=== PATIENT | female | born 1950 | race Caucasian/White ===

== ENCOUNTER → 2017-06-23 | Outpatient (CLI) | payer MEDICARE, OTHER ==
--- NOTE | 2017-06-23 10:02 | RADRPT ---
EXAM DATE/TIME: 06/23/2017 09:50 [place] COMPARISON: No previous studies available for comparison. INDICATIONS : Cough for 1 day. MEDICAL HISTORY : Hypertension. Diabetes mellitus type II. Smoker. SURGICAL HISTORY : None. ENCOUNTER: Initial ACUITY: 1 day PAIN SCORE: 0/10 LOCATION: Bilateral chest FINDINGS: PA and lateral views of the chest demonstrate the lungs to be symmetrically aerated without evidence of mass, infiltrate or effusion. The cardiomediastinal contours are unremarkable. Osseous structure s are intact. CONCLUSION: No acute disease. Cristiano Jones MD on June 23, 2017 at 10:00 Board Certified Radiologist. This report was verified electronically.
== END ==
LOC: HRAD 09:30
PROVIDERS: ATTEND Family Medicine
DX: J41.0 Simple chronic bronchitis (principal); F17.210 Nicotine dependence, cigarettes, uncomplicated
CPT/HCPCS: 71046

== ENCOUNTER → 2017-08-29 | Outpatient (CLI) | payer MEDICARE, OTHER ==
--- NOTE | 2017-08-29 14:02 | RADRPT ---
EXAM DATE: 08/29/2017 1:40 PM EDT AGE/SEX: 66 years / Female INDICATIONS: Low back pain. CLINICAL DATA: This is the patient's initial encounter. Patient reports that signs and symptoms have been present for 2 days and indicates a pain score of 8/10. MEDICAL/SURGICAL HISTORY: None. None. COMPARISON: No prior exams available for comparison. FINDINGS: The vertebral bodies are in normal alignment without evidence of compression deformity. Minimal loss of disc space height at L5-S1 Bone density is normal for age. Soft tissues are grossly intact. Degen erative changes are seen about both SI joints. CONCLUSION: Minimal loss of disc space height L5-S1. SI joint degenerative change. Electronically signed by: Paul Carlos MD 08/29/2017 2:01 PM EDT
== END ==
LOC: HRAD 13:11
PROVIDERS: ATTEND Family Medicine
DX: M54.5 Low back pain (principal)
CPT/HCPCS: 72110

== ENCOUNTER 2017-09-01 12:00 | Inpatient (IN) ==
[2017-09-04] MEDS ORDERED: hydrALAZINE 10 MG Tablet PO PRN (00:01)
[2017-09-04] MEDS ORDERED: Dextrose 50% in Water 50 ML Vial IV.PUSH PRN (00:01)
[2017-09-04] MEDS: Heparin - SQ 10,000 UNITS/ML Vial SQ SCH ×3 (06:09→22:15)
[2017-09-04] MEDS ORDERED: Insulin NovoLOG Aspart Correctional Sugar Inj SQ SCH ×3 (08:00→10:00)
[2017-09-04] MEDS: Aspirin 325 MG Tablet PO SCH (09:51)
[2017-09-04] MEDS: Atenolol 50 MG Tablet PO SCH ×2 (09:51→22:12)
[2017-09-04] MEDS: Loratadine 10 MG Tablet PO SCH (14:07)
[2017-09-04] MEDS ORDERED: MethylPREDNISolone Sod Succinate Inj 125 MG/2 ML Vial IV.PUSH ONE (16:04)
[2017-09-04] MEDS: Insulin NovoLOG Aspart Correctional Sugar Inj SQ SCH (22:11)
[2017-09-04] MEDS: ALPRAZolam 0.25 MG Tablet PO PRN (23:51)
--- NOTE | 2017-09-05 09:06 | P.PNNEU ---
Subjective Subjective Comments: No acute events reported No headache No chest pain No dyspnea Active Medications: Active Medications Generic Name Dose Route Start Last Admin Trade Name Freq PRN Reason Stop Dose Admin Alprazolam 0.25 mg 09/04/17 00:01 09/04/17 23:51 Xanax PO 0.25 mg Q8H PRN Administration ANXIETY Aspirin 325 mg 09/04/17 09:00 09/04/17 09:51 Aspirin PO 325 mg DAILY MARILU Administration Atenolol 50 mg 09/04/17 09:00 09/04/17 22:12 Tenormin PO 50 mg BID MARILU Administration Atorvastatin Calcium 40 mg 09/04/17 21:00 09/04/17 22:12 Lipitor PO 40 mg HS MARILU Administration Dextrose 50 ml 09/04/17 00:01 D50w Vial IV.PUSH UNSCH PRN PER HYPOGLYCEMIA PROTOCOL Glucagon 1 mg 09/04/17 00:01 Glucagon Inj OTHER PRN PRN for Hypoglycemia Protocol Heparin Sodium (Porcine) 5,000 units 09/04/17 06:00 09/04/17 22:15 Heparin Inj SQ Not Given Q8HR [facility] Hydralazine HCl 10 mg 09/04/17 00:01 Apresoline PO Q6H PRN SBP>160, DBP>90 Insulin Aspart 0 - 12 unit 09/04/17 22:00 09/04/17 22:11 Novolog Insulin Suppl Scale Inj SQ 10 unit ACHS MARILU Administration Protocol Loratadine 10 mg 09/04/17 09:00 09/04/17 14:07 Claritin PO Not Given DAILY [facility] Sodium Chloride 2 ml 09/04/17 00:01 Ns Flush IV.FLUSH UNSCH PRN FLUSH AFTER USING IV ACCESS Trimethoprim/Sulfamethoxazole 1 tab 09/04/17 09:00 09/04/17 22:13 Bactrim Ds PO 1 tab Q12HR MARILU Administration Allergies/Adverse Reactions: Allergies Allergy/AdvReac Type Severity Reaction Status Date / Time codeine Allergy Unknown Verified 09/01/17 12:23 Penicillins Allergy Unknown Verified 09/01/17 12:23 Physical Exam Vital signs: Vital Signs 09/04/17 12:00 09/04/17 16:00 09/04/17 19:51 Temperature 97.1 F L 97.3 F L Pulse Rate 74 73 84 Respiratory Rate 18 18 Blood Pressure 165/86 H 174/81 H Pulse Oximetry 99 99 09/04/17 20:00 09/04/17 23:51 09/05/17 00:00 Temperature 97.8 F 97.4 F L Pulse Rate 80 77 73 Respiratory Rate 18 18 Blood Pressure 149/76 H 159/83 H Pulse Oximetry 95 95 09/05/17 04:00 09/05/17 06:01 Temperature 97.7 F Pulse Rate 68 Respiratory Rate 17 17 Blood Pressure 134/75 Pulse Oximetry 93 L Intake & Output 09/04/17 09/05/17 09/05/17 18:59 06:59 18:59 Intake Total 1780 / 1780 Output Total 300 / 300 Balance 1480 / 1480 Weight 55.1 kg Intake: Oral [id number] Output: Urine 300 / 300 Other: # Voids 5 3 Date of Last Bowel Movement 09/02/17 09/02/17 - Routine Neurological Exam Present: alert, oriented X3, CN II-XII intact, motor deficit (rt leg 1-2/5) Objective Laboratory Results - last 24 hr 09/04/17 09/04/17 09/04/17 17:13 21:24 21:25 POC Glucose 108 423 H 388 H 09/05/17 09/05/17 03:54 07:35 POC Glucose 241 H 161 H Review/Management - Diagnosis (1) Stroke Code(s): I63.9 - Cerebral infarction, unspecified Status: Acute Current Visit: Yes (2) Stroke due to embolism of left middle cerebral artery Code(s): I63.412 - Cerebral infarction due to embolism of left middle cerebral artery Status: Acute Current Visit: Yes - Review/Management Plan: suspect stroke and not MS antiplatelet tob cessation bp control ldl<70 f/u in 2-3 weeks repeat mri brain in 6-8 weeks
[2017-09-05] MEDS: Aspirin 325 MG Tablet PO SCH (09:24)
[2017-09-05] MEDS: Insulin NovoLOG Aspart Correctional Sugar Inj SQ SCH ×3 (09:24→18:01)
[2017-09-05] MEDS: Atenolol 50 MG Tablet PO SCH ×2 (09:25→21:49)
[2017-09-05] MEDS: Loratadine 10 MG Tablet PO SCH (09:25)
--- NOTE | 2017-09-05 13:04 | P.PNIM ---
Subjective Interval history: 66 yo wf with RLE weakness for 4 days. Also c/o RUE numbness and paresthesia. Seen by neurology, JAYSON and loop placement requested. Pt supposed to be NPO, but did not comply. 09-03 Patient still has right lower extremity weakness with difficulty extending up to the flexion and extension of her right knee. She has a history of sciatica. 7 Patient states she has regained some strength in her right leg and rather than pure numbness has incision of her right foot. She is able to minimally move her ankle in a flexion-extension direction. She is ambulating with the assistance of a walker 7-2 TO GO FOR MRI TODAY AND JAYSON AND LOOP RECORDER TOMORROW DW RN AND PT AND CM AM LABS Physical Exam Vital signs: Vital Signs 09/04/17 16:00 09/04/17 19:51 09/04/17 20:00 Temperature 97.3 F L 97.8 F Pulse Rate 73 84 80 Respiratory Rate 18 18 Blood Pressure 174/81 H 149/76 H Pulse Oximetry 99 95 09/04/17 23:51 09/05/17 00:00 09/05/17 04:00 Temperature 97.4 F L 97.7 F Pulse Rate 77 73 68 Respiratory Rate 18 17 Blood Pressure 159/83 H 134/75 Pulse Oximetry 95 93 L 09/05/17 06:01 09/05/17 08:00 Temperature 97.3 F L Pulse Rate 71 Respiratory Rate 17 18 Blood Pressure 174/79 H Pulse Oximetry 98 Intake & Output 09/04/17 09/05/17 09/05/17 18:59 06:59 18:59 Intake Total 1780 / 1780 Output Total 300 / 300 Balance 1480 / 1480 Weight 55.1 kg Intake: Oral 1779 / 1780 Output: Urine 300 / 300 Other: # Voids 5 3 Date of Last Bowel Movement 09/02/17 09/02/17 Narrative: GENERAL: Awake alert and oriented 3 talkative and cooperative has right lower extremity weakness SKIN: Warm and dry. HEAD: Atraumatic. Normocephalic. EYES: Pupils equal and round. No scleral icterus. No injection or drainage. Extraocular muscles intact ENT: No nasal bleeding or discharge. Mucous membranes pink and moist. Tongue is midline NECK: Trachea midline. No JVD. Supple CARDIOVASCULAR: Regular rate and rhythm. S1-S2 no S3 or S4 no heave or thrill or rub or gallop RESPIRATORY: No accessory muscle use. Clear to auscultation. Breath sounds equal bilaterally. GASTROINTESTINAL: Abdomen soft, non-tender, nondistended. Hepatic and splenic margins not palpable. MUSCULOSKELETAL: Extremities without clubbing, cyanosis, or edema. No obvious deformities. NEUROLOGICAL: Awake and alert. No obvious cranial nerve deficits. Motor grossly within normal limits. Five out of 5 muscle strength in the arms and legs. Normal speech. Right lower extremity weakness 3/5 PSYCHIATRIC: Appropriate mood and affect; insight and judgment normal. Results - Labs CBC & Chem 7: 09/03/17 06:34 09/01/17 12:30 Laboratory Results - last 24 hr 09/04/17 09/04/17 09/04/17 17:13 21:24 21:25 POC Glucose 108 423 H 388 H 09/05/17 09/05/17 09/05/17 03:54 07:35 12:11 POC Glucose 241 H 161 H 123 H Assessment and Plan - Plan 66-year-old white female being admitted for strokelike symptoms and right leg paresis Right leg paresis Onset following to 3 hour car rides to [place] and 2 hours spent in hot tub after full day on feet at [facility] She has had similar episodes in the past affecting the same leg but not this severe Single dose of Solu-Medrol has resulted in return of paresthesias rather than numbness in her right foot, ankle is moving again with 2 out of 5 strength in upper leg is able to support ambulation with walker give another dose of Solu-Medrol 125 mg IV MRI of C-spine ordered given history of disc herniations and neck Ongoing workup for MS is still pending Appreciate neurology consultation Left MCA ischemia Head MRA reviewed and reveals unremarkable MRA examination of the brain. Specifically, no significant intracranial arterial stenosis or large vessel occlusion. Head MRI reveals white matter lesions consistent with left-sided CVA versus demyelination disorder Neurology has consulted cardiology and requested JAYSON, scheduled for tomorrow Continue aspirin daily, continue home Lipitor Appreciate neurology consult Appreciate cardiology consult Abnormal lumbar MRI Lumbar MRI reveals right-sided facet joint synovial cyst at the L4-5 level protruding into the canal in contributing to moderate canal compromise Neurosurgery suspects left CVA, less likely compression of spinal stenosis Appreciate neurosurgery consult FOR MRI TODAY Urinary tract infection UA ordered due to intermittent elevation of leukocytes, positive for UTI Urine culture pending Continue Bactrim DVT prophylaxis Heparin Code Status: Full code Discussed Condition With: RN and patient and case management Discharge Planning: Pending clearance by cardiology and neurology and neurosurgery
[2017-09-05] MEDS: Heparin - SQ 10,000 UNITS/ML Vial SQ SCH (13:20)
--- NOTE | 2017-09-05 14:46 | MR ---
EXAM DATE: 09/05/2017 2:38 PM EDT AGE/SEX: 67 years / Female INDICATIONS: . Right upper and lower extremity weakness. CLINICAL DATA: This is the patient's subsequent encounter. Patient reports that signs and symptoms h ave been present for 4 - 6 days and indicates a pain score of 0/10. MEDICAL/SURGICAL HISTORY: Hypertension. Diabetes mellitus type II. Hysterectomy. left lumpecto my COMPARISON: No prior exams available for comparison. TECHNIQUE: Multiplanar, multisequence MRI examination of the cervical spine was performed without co ntrast. FINDINGS: Vertebrae: Normal vertebral body height. Homogeneous marrow signal. There are mild degenerative karie nges with disc dehydration and disc space narrowing at C4-5, C5-6 and C6-7. No abnormal bone marrow e aster is demonstrated. No compression fracture injuries are demonstrated. Alignment: Normal. Cord: Normal configuration and signal. Post Fossa: The cerebellar tonsils are normal in position. C2-C3: The thecal sac has a normal configuration. There is no evidence of disc herniation or spinal canal stenosis. The neural foramina are patent bilaterally. C3-C4: The thecal sac has a normal configuration. There is no evidence of disc herniation or spinal canal stenosis. The neural foramina are patent bilaterally. C4-C5: There is broad-based bulging and right paracentral bulging with some narrowing of the neural foramina bilaterally, right greater than left. C5-C6: Diffuse broad-based bulging with some narrowing of the neural foramina bilaterally. C6-C7: Mild diffuse broad-based bulging. The neural foramina appear patent. C7-T1: No epidural impressions seen. CONCLUSION: 1. There is broad-based bulging and right paracentral bulging at C4-5. 2. There is diffuse broad-based bulging at C5-6 and C6-7 3. Primary bony degenerative changes, disc degeneration and disc space narrowing at C4-5, C5-6 and C 6-7 Electronically signed by: Rasheed Qiu MD 09/05/2017 2:45 PM EDT
--- NOTE | 2017-09-05 15:09 | P.PNCA ---
Subjective Interval history: No CP or SOB, weakness improving Physical Exam Vital signs: Vital Signs 09/04/17 16:00 09/04/17 19:51 09/04/17 20:00 Temperature 97.3 F L 97.8 F Pulse Rate 73 84 80 Respiratory Rate 18 18 Blood Pressure 174/81 H 149/76 H Pulse Oximetry 99 95 09/04/17 23:51 09/05/17 00:00 09/05/17 04:00 Temperature 97.4 F L 97.7 F Pulse Rate 77 73 68 Respiratory Rate 18 17 Blood Pressure 159/83 H 134/75 Pulse Oximetry 95 93 L 09/05/17 06:01 09/05/17 08:00 Temperature 97.3 F L Pulse Rate 71 Respiratory Rate 17 18 Blood Pressure 174/79 H Pulse Oximetry 98 Intake & Output 09/04/17 09/05/17 09/05/17 18:59 06:59 18:59 Intake Total 1780 / 1780 Output Total 300 / 300 Balance 1480 / 1480 Weight 121 lb 7.595 oz Intake: Oral 1780 / 1780 Output: Urine 300 / 300 Other: # Voids 5 3 Date of Last Bowel Movement 09/02/17 09/02/17 - Constitutional no acute distress - Routine Respiratory Exam Present: CTA bilaterally - Routine Cardiovascular Exam Present: RRR. Absent: murmur, gallop - Routine Abdominal Exam Present: soft - Routine Extremities Exam Absent: edema - Routine Neurological Exam Present: alert, oriented X3 - Routine Psychiatric Exam Present: normal affect Assessment and Plan - Assessment (1) Stroke Code(s): I63.9 - Cerebral infarction, unspecified Status: Acute (2) HTN (hypertension) Code(s): I10 - Essential (primary) hypertension Status: Acute (3) Smoking Code(s): F17.200 - Nicotine dependence, unspecified, uncomplicated Status: Acute - Plan Weakness improving. Tele with no evidence of a fib. Continue monitoring. Proceed with JAYSON tomorrow.
[2017-09-06] MEDS: Heparin - SQ 10,000 UNITS/ML Vial SQ SCH ×4 (06:43→23:00)
[2017-09-06 08:13] LABS: Prothrombin Time 10.3 sec (9.8-11.6)
[2017-09-06 08:15] LABS: Baso # (Auto) 0.1 th/mm3 (0.0-0.2); Baso % (Auto) 0.7 % (0.0-2.0); Eos % (Auto) 0.4 % (0.0-4.0); Hemoglobin 16.3 gm/dL (11.6-15.3); Lymph # (Auto) 0.8 th/mm3 (1.0-4.8); Mean Corpuscular HGB Conc 33.3 % (32.0-36.0); Mean Corpuscular Hemoglobin 31.9 pg (27.0-34.0); Mean Corpuscular Volume 95.8 fL (80.0-100.0); Mean Platelet Volume 10.6 fL (7.0-11.0); Mono % (Auto) 10.6 % (0.0-8.0); Neut # (Auto) 7.9 th/mm3 (1.8-7.7); Neut % (Auto) 80.3 % (16.0-70.0); Platelet Count 125 th/mm3 (150-450); Red Blood Count 5.11 mil/mm3 (4.00-5.30); Red Cell Distribution Width 13.7 % (11.6-17.2); White Blood Count 9.8 th/mm3 (4.0-11.0)
[2017-09-06 08:25] LABS: Albumin 3.4 g/dL (3.4-5.0); Anion Gap 9 meq/L (5-15); Aspartate Aminotransferase 27 U/L (15-37); Blood Urea Nitrogen 21 mg/dL (7-18); Calcium 8.7 mg/dL (8.5-10.1); Carbon Dioxide 25.6 meq/L (21.0-32.0); Chloride 103 meq/L (98-107); Glomerular Filtration Rate 58 mL/min (>89); Glucose,Random 149 mg/dL (74-106); Magnesium 1.9 mg/dL (1.5-2.5); Potassium 3.9 meq/L (3.5-5.1); Sodium 138 meq/L (136-145)
[2017-09-06 08:35] LABS: Alanine Aminotransferase 37 U/L (10-53); Alkaline Phosphatase 69 U/L (45-117); Free T4 (Free Thyroxine) 1.13 ng/dL (0.76-1.46); Phosphorus 2.7 mg/dL (2.5-4.9); Total Protein 7.1 g/dL (6.4-8.2)
[2017-09-06] MEDS: Aspirin 325 MG Tablet PO SCH (10:07)
[2017-09-06] MEDS: Loratadine 10 MG Tablet PO SCH (10:08)
[2017-09-06] MEDS: Atenolol 50 MG Tablet PO SCH ×2 (10:08→20:59)
[2017-09-06] MEDS: Insulin NovoLOG Aspart Correctional Sugar Inj SQ SCH ×4 (10:13→20:58)
[2017-09-06] MEDS: ALPRAZolam 0.25 MG Tablet PO PRN (11:59)
--- NOTE | 2017-09-06 12:55 | P.PNIM ---
Subjective Interval history: 66 yo wf with RLE weakness for 4 days. Also c/o RUE numbness and paresthesia. Seen by neurology, JAYSON and loop placement requested. Pt supposed to be NPO, but did not comply. 09-03 Patient still has right lower extremity weakness with difficulty extending up to the flexion and extension of her right knee. She has a history of sciatica. 7- Patient states she has regained some strength in her right leg and rather than pure numbness has incision of her right foot. She is able to minimally move her ankle in a flexion-extension direction. She is ambulating with the assistance of a walker 7-2 TO GO FOR MRI TODAY AND JAYSON AND LOOP RECORDER TOMORROW DW RN AND PT AND CM AM LABS 7-3 TO GO FOR JAYSON AND LOOP RECORDER TODAY WITH CARDIOLOGY ANTIONE RN AND PT AND CM AM LABS Physical Exam Vital signs: Vital Signs 09/05/17 16:00 09/05/17 20:00 09/06/17 00:00 Temperature 97.9 F 98.1 F 98.8 F Pulse Rate 72 75 78 Respiratory Rate 20 16 16 Blood Pressure 169/74 H 150/77 H 162/71 H Pulse Oximetry 99 95 96 09/06/17 03:48 09/06/17 04:00 Temperature 99.7 F H 98.2 F Pulse Rate 85 78 Respiratory Rate 16 18 Blood Pressure 159/81 H 100/70 Pulse Oximetry 94 L 98 Intake & Output 09/05/17 09/06/17 09/06/17 18:59 06:59 18:59 Intake Total 480 / 480 Balance 480 / 480 Intake: Oral 480 / 480 Other: # Voids 3 Date of Last Bowel Movement 09/04/17 Narrative: GENERAL: Awake alert and oriented 3 talkative and cooperative has right lower extremity weakness SKIN: Warm and dry. HEAD: Atraumatic. Normocephalic. EYES: Pupils equal and round. No scleral icterus. No injection or drainage. Extraocular muscles intact ENT: No nasal bleeding or discharge. Mucous membranes pink and moist. Tongue is midline NECK: Trachea midline. No JVD. Supple CARDIOVASCULAR: Regular rate and rhythm. S1-S2 no S3 or S4 no heave or thrill or rub or gallop RESPIRATORY: No accessory muscle use. Clear to auscultation. Breath sounds equal bilaterally. GASTROINTESTINAL: Abdomen soft, non-tender, nondistended. Hepatic and splenic margins not palpable. MUSCULOSKELETAL: Extremities without clubbing, cyanosis, or edema. No obvious deformities. NEUROLOGICAL: Awake and alert. No obvious cranial nerve deficits. Motor grossly within normal limits. Five out of 5 muscle strength in the arms and legs. Normal speech. Right lower extremity weakness 3/5 PSYCHIATRIC: Appropriate mood and affect; insight and judgment normal. Results - Labs CBC & Chem 7: 09/06/17 07:01 09/06/17 07:07 Laboratory Results - last 24 hr 09/05/17 09/06/17 09/06/17 17:56 00:59 07:01 WBC 9.8 RBC 5.11 Hgb 16.3 H Hct 49.0 H MCV 95.8 MCH 31.9 MCHC 33.3 RDW 13.7 Plt Count 125 L MPV 10.6 Neut % (Auto) 80.3 H Lymph % (Auto) 8.0 L [place] % (Auto) 10.6 H Eos % (Auto) 0.4 Baso % (Auto) 0.7 Neut # (Auto) 7.9 H Lymph # (Auto) 0.8 L [place] # (Auto) 1.0 H Eos # (Auto) 0.0 Baso # (Auto) 0.1 WBC Differential . Differential Comment Auto diff final PT INR Sodium Potassium Chloride Carbon Dioxide Anion Gap BUN Creatinine Estimated GFR POC Glucose 156 H 182 H Random Glucose Calcium Phosphorus Magnesium Total Bilirubin AST ALT Alkaline Phosphatase Total Protein Albumin TSH Free T4 09/06/17 09/06/17 09/06/17 07:01 07:07 08:33 WBC RBC Hgb Hct MCV MCH MCHC RDW Plt Count MPV Neut % (Auto) Lymph % (Auto) [place] % (Auto) Eos % (Auto) Baso % (Auto) Neut # (Auto) Lymph # (Auto) [place] # (Auto) Eos # (Auto) Baso # (Auto) WBC Differential Differential Comment PT 10.3 INR 1.0 Sodium 138 Potassium 3.9 Chloride 103 Carbon Dioxide 25.6 Anion Gap 9 BUN 21 H Creatinine 0.96 Estimated GFR 58 L POC Glucose 153 H Random Glucose 149 H Calcium 8.7 Phosphorus 2.7 Magnesium 1.9 Total Bilirubin 0.5 AST 27 ALT 37 Alkaline Phosphatase 69 Total Protein 7.1 Albumin 3.4 TSH 4.180 H Free T4 1.13 09/06/17 11:21 WBC RBC Hgb Hct MCV MCH MCHC RDW Plt Count MPV Neut % (Auto) Lymph % (Auto) [place] % (Auto) Eos % (Auto) Baso % (Auto) Neut # (Auto) Lymph # (Auto) [place] # (Auto) Eos # (Auto) Baso # (Auto) WBC Differential Differential Comment PT INR Sodium Potassium Chloride Carbon Dioxide Anion Gap BUN Creatinine Estimated GFR POC Glucose 134 H Random Glucose Calcium Phosphorus Magnesium Total Bilirubin AST ALT Alkaline Phosphatase Total Protein Albumin TSH Free T4 - Imaging Impressions Cervical Spine MRI 09/05/17 00:00 CONCLUSION: 1. There is broad-based bulging and right paracentral bulging at C4-5. 2. There is diffuse broad-based bulging at C5-6 and C6-7 3. Primary bony degenerative changes, disc degeneration and disc space narrowing at C4-5, C5-6 and C6-7 Assessment and Plan - Assessment (1) Stroke Code(s): I63.9 - Cerebral infarction, unspecified Status: Chronic (2) Stroke due to embolism of left middle cerebral artery Code(s): I63.412 - Cerebral infarction due to embolism of left middle cerebral artery Status: Chronic (3) HTN (hypertension) Code(s): I10 - Essential (primary) hypertension Status: Chronic (4) Smoking Code(s): F17.200 - Nicotine dependence, unspecified, uncomplicated Status: Chronic - Plan 66-year-old white female being admitted for strokelike symptoms and right leg paresis Right leg paresis Onset following to 3 hour car rides to [place] and 2 hours spent in hot tub after full day on feet at [facility] She has had similar episodes in the past affecting the same leg but not this severe Single dose of Solu-Medrol has resulted in return of paresthesias rather than numbness in her right foot, ankle is moving again with 2 out of 5 strength in upper leg is able to support ambulation with walker give another dose of Solu-Medrol 125 mg IV MRI of C-spine ordered given history of disc herniations and neck Ongoing workup for MS is still pending Appreciate neurology consultation Left MCA ischemia Head MRA reviewed and reveals unremarkable MRA examination of the brain. Specifically, no significant intracranial arterial stenosis or large vessel occlusion. Head MRI reveals white matter lesions consistent with left-sided CVA versus demyelination disorder Neurology has consulted cardiology and requested JAYSON, scheduled for tomorrow Continue aspirin daily, continue home Lipitor Appreciate neurology consult Appreciate cardiology consult Abnormal lumbar MRI Lumbar MRI reveals right-sided facet joint synovial cyst at the L4-5 level protruding into the canal in contributing to moderate canal compromise Neurosurgery suspects left CVA, less likely compression of spinal stenosis Appreciate neurosurgery consult FOR MRI TODAY Urinary tract infection UA ordered due to intermittent elevation of leukocytes, positive for UTI Urine culture pending Continue Bactrim DVT prophylaxis Heparin Code Status: FULL CODE Discussed Condition With: RN AND PT AND CM Discharge Planning: Pending clearance by cardiology and neurology and neurosurgery
--- NOTE | 2017-09-06 13:50 | P.PNCA ---
Subjective Interval history: No CP or SOB, still with R foot weakness and numbness Physical Exam Vital signs: Vital Signs 09/05/17 16:00 09/05/17 20:00 09/06/17 00:00 Temperature 97.9 F 98.1 F 98.8 F Pulse Rate 72 75 78 Respiratory Rate 20 16 16 Blood Pressure 169/74 H 150/77 H 162/71 H Pulse Oximetry 99 95 96 09/06/17 03:48 09/06/17 04:00 Temperature 99.7 F H 98.2 F Pulse Rate 85 78 Respiratory Rate 16 18 Blood Pressure 159/81 H 100/70 Pulse Oximetry 94 L 98 Intake & Output 09/05/17 09/06/17 09/06/17 18:59 06:59 18:59 Intake Total 480 / 480 Balance 480 / 480 Intake: Oral 480 / 480 Other: # Voids 3 Date of Last Bowel Movement 09/04/17 - Constitutional no acute distress - Routine Respiratory Exam Present: CTA bilaterally - Routine Cardiovascular Exam Present: RRR - Routine Abdominal Exam Present: soft. Absent: tenderness - Routine Extremities Exam Present: edema - Routine Neurological Exam Present: alert, oriented X3 - Routine Psychiatric Exam Present: normal affect Assessment and Plan - Assessment (1) Stroke Code(s): I63.9 - Cerebral infarction, unspecified Status: Chronic (2) HTN (hypertension) Code(s): I10 - Essential (primary) hypertension Status: Chronic (3) Smoking Code(s): F17.200 - Nicotine dependence, unspecified, uncomplicated Status: Chronic - Plan Tele with no evidence of a fib. Continue monitoring. Proceed with JAYSON today as planned. No new cardiac issues.
--- NOTE | 2017-09-06 14:11 | CF ---
cc: Polina Cole MD DATE: 09/06/2017 INDICATION: Cerebrovascular accident. PROCEDURE PERFORMED: Transesophageal echocardiogram. PROCEDURE: After the patient was sedated by anesthesia, transesophageal probe was placed without difficulty. Tomographic images were obtained. The left ventricular function was preserved with an estimated ejection fraction of 55% with no wall motion abnormalities. Aortic valve was structurally normal. There was no evidence of aortic stenosis or regurgitation. Mitral valve was structurally normal. There was no evidence of mitral stenosis. There is evidence of trace mitral regurgitation. There was evidence of mild tricuspid regurgitation. Left atrial appendage was visualized and there was no evidence of left atrial thrombus. Bubble study was performed and there was evidence of patent foramen ovale with a small right to left shunt. The descending thoracic aorta had no significant plaque. DIAGNOSES: 1. No evidence of left atrial thrombus. 2. Patent foramen ovale. 3. Preserved left ventricular systolic function. 4. Trace mitral regurgitation. 5. Mild tricuspid regurgitation. Polina Cole MD OQ/TL , 01:53 PM , 02:10 PM MTDNan
[2017-09-06 17:29] LABS: Hemoglobin A1c 7.1 % (4.3-6.0)
--- NOTE | 2017-09-06 17:40 | P.PNNEU ---
Subjective Subjective Comments: No acute events reported No headache No chest pain No dyspnea Active Medications: Active Medications Generic Name Dose Route Start Last Admin Trade Name Freq PRN Reason Stop Dose Admin Alprazolam 0.25 mg 09/04/17 00:01 09/06/17 11:59 Xanax PO 0.25 mg Q8H PRN Administration ANXIETY Aspirin 325 mg 09/04/17 09:00 09/06/17 10:07 Aspirin PO 325 mg DAILY MARILU Administration Atenolol 50 mg 09/04/17 09:00 09/06/17 10:08 Tenormin PO 50 mg BID MARILU Administration Atorvastatin Calcium 40 mg 09/04/17 21:00 09/05/17 21:51 Lipitor PO 40 mg HS MARILU Administration Dextrose 50 ml 09/04/17 00:01 D50w Vial IV.PUSH UNSCH PRN PER HYPOGLYCEMIA PROTOCOL Glucagon 1 mg 09/04/17 00:01 Glucagon Inj OTHER PRN PRN for Hypoglycemia Protocol Heparin Sodium (Porcine) 5,000 units 09/04/17 06:00 09/06/17 06:43 Heparin Inj SQ 5,000 units Q8HR MARILU Administration Hydralazine HCl 10 mg 09/04/17 00:01 09/05/17 13:20 Apresoline PO 10 mg Q6H PRN Administration SBP>160, DBP>90 Insulin Aspart 0 - 12 unit 09/04/17 22:00 09/06/17 16:20 Novolog Insulin Suppl Scale Inj SQ Not Given ACHS [facility] Protocol Loratadine 10 mg 09/04/17 09:00 09/06/17 10:08 Claritin PO 10 mg DAILY MARILU Administration Sodium Chloride 2 ml 09/04/17 00:01 Ns Flush IV.FLUSH UNSCH PRN FLUSH AFTER USING IV ACCESS Trimethoprim/Sulfamethoxazole 1 tab 09/04/17 09:00 09/06/17 10:08 Bactrim Ds PO 1 tab Q12HR MARILU Administration Allergies/Adverse Reactions: Allergies Allergy/AdvReac Type Severity Reaction Status Date / Time codeine Allergy Unknown Verified 09/01/17 12:23 Penicillins Allergy Unknown Verified 09/01/17 12:23 Physical Exam Vital signs: Vital Signs 09/05/17 20:00 09/06/17 00:00 09/06/17 03:48 Temperature 98.1 F 98.8 F 99.7 F H Pulse Rate 75 78 85 Respiratory Rate 16 16 16 Blood Pressure 150/77 H 162/71 H 159/81 H Pulse Oximetry 95 96 94 L 09/06/17 04:00 09/06/17 08:00 09/06/17 12:00 Temperature 98.2 F 99.8 F H 99.1 F Pulse Rate 78 97 H 16 L Respiratory Rate 18 16 16 Blood Pressure 100/70 150/75 H 152/70 H Pulse Oximetry 98 92 L 92 L Intake & Output 09/05/17 09/06/17 09/06/17 18:59 06:59 18:59 Intake Total 480 / 480 Output Total 400 / 400 Balance 480 / 480 -400 / -400 Intake: Oral 480 / 480 Output: Urine 400 / 400 Other: # Voids 3 Date of Last Bowel Movement 09/04/17 09/04/17 - Constitutional no acute distress - Routine HEENT Exam Head: Present: normocephalic, atraumatic - Routine Neurological Exam Present: alert, oriented X3, CN II-XII intact, normal reflexes, abnormal gait - Detailed Neurological Exam: Coma Scale Eye Opening: Spontaneous (rt le 2-3/5) Objective Laboratory Results - last 24 hr 09/05/17 09/06/17 09/06/17 17:56 00:59 07:01 WBC 9.8 RBC 5.11 Hgb 16.3 H Hct 49.0 H MCV 95.8 MCH 31.9 MCHC 33.3 RDW 13.7 Plt Count 125 L MPV 10.6 Neut % (Auto) 80.3 H Lymph % (Auto) 8.0 L [place] % (Auto) 10.6 H Eos % (Auto) 0.4 Baso % (Auto) 0.7 Neut # (Auto) 7.9 H Lymph # (Auto) 0.8 L [place] # (Auto) 1.0 H Eos # (Auto) 0.0 Baso # (Auto) 0.1 WBC Differential . Differential Comment Auto diff final PT INR Sodium Potassium Chloride Carbon Dioxide Anion Gap BUN Creatinine Estimated GFR POC Glucose 156 H 182 H Random Glucose Calcium Phosphorus Magnesium Total Bilirubin AST ALT Alkaline Phosphatase Total Protein Albumin TSH Free T4 09/06/17 09/06/17 09/06/17 07:01 07:07 08:33 WBC RBC Hgb Hct MCV MCH MCHC RDW Plt Count MPV Neut % (Auto) Lymph % (Auto) [place] % (Auto) Eos % (Auto) Baso % (Auto) Neut # (Auto) Lymph # (Auto) [place] # (Auto) Eos # (Auto) Baso # (Auto) WBC Differential Differential Comment PT 10.3 INR 1.0 Sodium 138 Potassium 3.9 Chloride 103 Carbon Dioxide 25.6 Anion Gap 9 BUN 21 H Creatinine 0.96 Estimated GFR 58 L POC Glucose 153 H Random Glucose 149 H Calcium 8.7 Phosphorus 2.7 Magnesium 1.9 Total Bilirubin 0.5 AST 27 ALT 37 Alkaline Phosphatase 69 Total Protein 7.1 Albumin 3.4 TSH 4.180 H Free T4 1.13 09/06/17 09/06/17 11:21 16:56 WBC RBC Hgb Hct MCV MCH MCHC RDW Plt Count MPV Neut % (Auto) Lymph % (Auto) [place] % (Auto) Eos % (Auto) Baso % (Auto) Neut # (Auto) Lymph # (Auto) [place] # (Auto) Eos # (Auto) Baso # (Auto) WBC Differential Differential Comment PT INR Sodium Potassium Chloride Carbon Dioxide Anion Gap BUN Creatinine Estimated GFR POC Glucose 134 H 113 H Random Glucose Calcium Phosphorus Magnesium Total Bilirubin AST ALT Alkaline Phosphatase Total Protein Albumin TSH Free T4 Review/Management - Diagnosis (1) Stroke Code(s): I63.9 - Cerebral infarction, unspecified Status: Acute Current Visit: Yes (2) Stroke due to embolism of left middle cerebral artery Code(s): I63.412 - Cerebral infarction due to embolism of left middle cerebral artery Status: Acute Current Visit: Yes - Review/Management Plan: suspect stroke and not MS kirsten- small pfo with rt to left shunt recs consider pfo closure if she fails antiplatelet, risk factor reduction/as per cardio recs antiplatelet tob cessation bp control ldl<70 rehab vs home p.t.- per p.t. f/u in 2-3 weeks repeat mri brain in 6-8 weeks (1) Stroke Qualifiers: CVA mechanism: embolism Precerebral and cerebral artery: middle cerebral artery Laterality of affected vessel: left Qualified Code(s): I63.412 - Cerebral infarction due to embolism of left middle cerebral artery
[2017-09-06] MEDS ORDERED: Acetaminophen 325 MG Tablet PO PRN (21:24)
--- NOTE | 2017-09-06 23:54 | P.PNONC ---
Subjective Interval history: Resting comfortably in bed Objective Vital Signs/Intake & Output: Vital Signs 09/06/17 00:00 09/06/17 03:48 09/06/17 04:00 Temperature 98.8 F 99.7 F H 98.2 F Pulse Rate 78 85 78 Respiratory Rate 16 16 18 Blood Pressure 162/71 H 159/81 H 100/70 Pulse Oximetry 96 94 L 98 09/06/17 08:00 09/06/17 12:00 09/06/17 16:00 Temperature 99.8 F H 99.1 F 98.5 F Pulse Rate 97 H 16 L 88 Respiratory Rate 16 16 16 Blood Pressure 150/75 H 152/70 H 152/99 H Pulse Oximetry 92 L 92 L 99 09/06/17 20:00 09/06/17 21:57 Temperature 102.6 F H 100.6 F H Pulse Rate 93 H Respiratory Rate 19 Blood Pressure 146/77 H Pulse Oximetry 98 Intake & Output 09/06/17 09/06/17 09/07/17 06:59 18:59 06:59 Intake Total 480 / 480 Output Total 600 / 600 Balance 480 / 480 -600 / -600 Weight 55.1 kg Intake: Oral 480 / 480 Output: Urine 600 / 600 Other: # Voids 3 Date of Last Bowel Movement 09/04/17 09/04/17 Weight On Admission 55.1 kg Result Diagrams: 09/07/17 05:02 09/07/17 05:02 Laboratory Results: Laboratory Results - last 24 hr 09/06/17 09/06/17 09/06/17 00:59 07:01 07:01 WBC 9.8 RBC 5.11 Hgb 16.3 H Hct 49.0 H MCV 95.8 MCH 31.9 MCHC 33.3 RDW 13.7 Plt Count 125 L MPV 10.6 Neut % (Auto) 80.3 H Lymph % (Auto) 8.0 L [place] % (Auto) 10.6 H Eos % (Auto) 0.4 Baso % (Auto) 0.7 Neut # (Auto) 7.9 H Lymph # (Auto) 0.8 L [place] # (Auto) 1.0 H Eos # (Auto) 0.0 Baso # (Auto) 0.1 WBC Differential . Differential Comment Auto diff final PT 10.3 INR 1.0 Sodium Potassium Chloride Carbon Dioxide Anion Gap BUN Creatinine Estimated GFR POC Glucose 182 H Random Glucose Hemoglobin A1c Calcium Phosphorus Magnesium Total Bilirubin AST ALT Alkaline Phosphatase Total Protein Albumin TSH Free T4 09/06/17 09/06/17 09/06/17 07:01 07:07 08:33 WBC RBC Hgb Hct MCV MCH MCHC RDW Plt Count MPV Neut % (Auto) Lymph % (Auto) [place] % (Auto) Eos % (Auto) Baso % (Auto) Neut # (Auto) Lymph # (Auto) [place] # (Auto) Eos # (Auto) Baso # (Auto) WBC Differential Differential Comment PT INR Sodium 138 Potassium 3.9 Chloride 103 Carbon Dioxide 25.6 Anion Gap 9 BUN 21 H Creatinine 0.96 Estimated GFR 58 L POC Glucose 153 H Random Glucose 149 H Hemoglobin A1c 7.1 H Calcium 8.7 Phosphorus 2.7 Magnesium 1.9 Total Bilirubin 0.5 AST 27 ALT 37 Alkaline Phosphatase 69 Total Protein 7.1 Albumin 3.4 TSH 4.180 H Free T4 1.13 09/06/17 09/06/17 09/06/17 11:21 16:56 20:56 WBC RBC Hgb Hct MCV MCH MCHC RDW Plt Count MPV Neut % (Auto) Lymph % (Auto) [place] % (Auto) Eos % (Auto) Baso % (Auto) Neut # (Auto) Lymph # (Auto) [place] # (Auto) Eos # (Auto) Baso # (Auto) WBC Differential Differential Comment PT INR Sodium Potassium Chloride Carbon Dioxide Anion Gap BUN Creatinine Estimated GFR POC Glucose 134 H 113 H 171 H Random Glucose Hemoglobin A1c Calcium Phosphorus Magnesium Total Bilirubin AST ALT Alkaline Phosphatase Total Protein Albumin TSH Free T4 Medications: Active Medications Generic Name Dose Route Start Last Admin Trade Name Freq PRN Reason Stop Dose Admin Acetaminophen 650 mg 09/06/17 21:24 09/06/17 21:52 Tylenol PO 650 mg Q4H PRN Administration FEVER > 100.4 F Alprazolam 0.25 mg 09/04/17 00:01 09/06/17 11:59 Xanax PO 0.25 mg Q8H PRN Administration ANXIETY Aspirin 325 mg 09/04/17 09:00 09/06/17 10:07 Aspirin PO 325 mg DAILY MARILU Administration Atenolol 50 mg 09/04/17 09:00 09/06/17 20:59 Tenormin PO 50 mg BID MARILU Administration Atorvastatin Calcium 40 mg 09/04/17 21:00 09/06/17 20:59 Lipitor PO 40 mg HS MARILU Administration Heparin Sodium (Porcine) 5,000 units 09/04/17 06:00 09/06/17 23:00 Heparin Inj SQ 5,000 units Q8HR MARILU Administration Hydralazine HCl 10 mg 09/04/17 00:01 09/05/17 13:20 Apresoline PO 10 mg Q6H PRN Administration SBP>160, DBP>90 Insulin Aspart 0 - 12 unit 09/04/17 22:00 09/06/17 20:58 Novolog Insulin Suppl Scale Inj SQ Not Given ACHS [facility] Protocol Loratadine 10 mg 09/04/17 09:00 09/06/17 10:08 Claritin PO 10 mg DAILY MARILU Administration Trimethoprim/Sulfamethoxazole 1 tab 09/04/17 09:00 09/06/17 20:58 Bactrim Ds PO 1 tab Q12HR MARILU Administration Objective Remarks: GENERAL: Well-nourished, well-developed patient. SKIN: Warm and dry. HEAD: Normocephalic. EYES: No scleral icterus. No injection or drainage. RESPIRATORY: No accessory muscle use. GASTROINTESTINAL: Abdomen soft, non-tender, nondistended. EXTREMITIES: No cyanosis, or edema. MUSCULOSKELETAL: Adequate muscle tone. NEUROLOGICAL: No obvious focal deficit. Awake, alert, and oriented x3. PSYCHIATRIC: Appropriate mood and affect; insight and judgment normal. Assessment/Plan - Plan 1. Stroke like symtpoms: neurology team following. 2. Hypercoaguable work up: pending 3. Polycythemia: BCR/ABL and JAK2 pending. Patient will need close follow up in hematology clinic on discharge.
[2017-09-07] MEDS ORDERED: Ciprofloxacin 400 MG/200 ML 400 MG/200 ML PIGGYBACK IV.SIG SCH
[2017-09-07 06:24] LABS: Baso # (Auto) 0.1 th/mm3 (0.0-0.2); Baso % (Auto) 0.5 % (0.0-2.0); Eos % (Auto) 0.2 % (0.0-4.0); Hematocrit 48.9 % (35.0-46.0); Hemoglobin 16.4 gm/dL (11.6-15.3); Lymph # (Auto) 0.9 th/mm3 (1.0-4.8); Lymph % (Auto) 8.6 % (9.0-44.0); Mean Corpuscular HGB Conc 33.6 % (32.0-36.0); Mean Corpuscular Volume 95.1 fL (80.0-100.0); Mean Platelet Volume 10.7 fL (7.0-11.0); Mono # (Auto) 0.9 th/mm3 (0.0-0.9); Neut # (Auto) 8.3 th/mm3 (1.8-7.7); Neut % (Auto) 81.7 % (16.0-70.0); Platelet Count 119 th/mm3 (150-450); Red Blood Count 5.14 mil/mm3 (4.00-5.30); White Blood Count 10.1 th/mm3 (4.0-11.0)
[2017-09-07] MEDS: Heparin - SQ 10,000 UNITS/ML Vial SQ SCH ×3 (06:26→13:25)
[2017-09-07 06:45] LABS: Anion Gap 10 meq/L (5-15); Aspartate Aminotransferase 43 U/L (15-37); Blood Urea Nitrogen 17 mg/dL (7-18); Calcium 9.1 mg/dL (8.5-10.1); Carbon Dioxide 24.6 meq/L (21.0-32.0); Chloride 101 meq/L (98-107); Glomerular Filtration Rate 59 mL/min (>89); Glucose,Random 161 mg/dL (74-106); Magnesium 2.2 mg/dL (1.5-2.5); Potassium 4.1 meq/L (3.5-5.1); Sodium 136 meq/L (136-145)
[2017-09-07 06:50] LABS: Alanine Aminotransferase 45 U/L (10-53); Alkaline Phosphatase 67 U/L (45-117); Phosphorus 3.6 mg/dL (2.5-4.9)
--- NOTE | 2017-09-07 08:45 | P.PNNEU ---
Subjective Subjective Comments: No acute events reported No headache No chest pain No dyspnea Active Medications: Active Medications Generic Name Dose Route Start Last Admin Trade Name Freq PRN Reason Stop Dose Admin Acetaminophen 650 mg 09/06/17 21:24 09/06/17 21:52 Tylenol PO 650 mg Q4H PRN Administration FEVER > 100.4 F Alprazolam 0.25 mg 09/04/17 00:01 09/06/17 11:59 Xanax PO 0.25 mg Q8H PRN Administration ANXIETY Aspirin 325 mg 09/04/17 09:00 09/06/17 10:07 Aspirin PO 325 mg DAILY MARILU Administration Atenolol 50 mg 09/04/17 09:00 09/06/17 20:59 Tenormin PO 50 mg BID MARILU Administration Atorvastatin Calcium 40 mg 09/04/17 21:00 09/06/17 20:59 Lipitor PO 40 mg HS MARILU Administration Dextrose 50 ml 09/04/17 00:01 D50w Vial IV.PUSH UNSCH PRN PER HYPOGLYCEMIA PROTOCOL Glucagon 1 mg 09/04/17 00:01 Glucagon Inj OTHER PRN PRN for Hypoglycemia Protocol Heparin Sodium (Porcine) 5,000 units 09/04/17 06:00 09/07/17 06:28 Heparin Inj SQ 5,000 units Q8HR MARILU Administration Hydralazine HCl 10 mg 09/04/17 00:01 09/05/17 13:20 Apresoline PO 10 mg Q6H PRN Administration SBP>160, DBP>90 Ciprofloxacin/Dextrose 400 mg in 200 mls @ 200 mls/hr 09/07/17 00:00 05:14 Cipro 400 Mg/200 Ml Inj IV.SIG Infused Q12H [facility] Infusion Insulin Aspart 0 - 12 unit 09/04/17 22:00 09/06/17 20:58 Novolog Insulin Suppl Scale Inj SQ Not Given ACHS [facility] Protocol Loratadine 10 mg 09/04/17 09:00 09/06/17 10:08 Claritin PO 10 mg DAILY [facility] Administration Sodium Chloride 2 ml 09/04/17 00:01 Ns Flush IV.FLUSH UNSCH PRN FLUSH AFTER USING IV ACCESS Allergies/Adverse Reactions: Allergies Allergy/AdvReac Type Severity Reaction Status Date / Time codeine Allergy Unknown Verified 09/01/17 12:23 Penicillins Allergy Unknown Verified 09/01/17 12:23 Review of Systems All other systems reviewed negative except as stated in HPI Physical Exam Vital signs: Vital Signs 09/06/17 12:00 09/06/17 16:00 09/06/17 20:00 Temperature 99.1 F 98.5 F 102.6 F H Pulse Rate 16 L 88 90 Respiratory Rate 16 16 19 Blood Pressure 152/70 H 152/99 H 146/77 H Pulse Oximetry 92 L 99 98 09/06/17 21:57 09/06/17 23:34 09/07/17 00:01 Temperature 100.6 F H 100.6 F H Pulse Rate 84 83 Respiratory Rate 18 Blood Pressure 123/56 L Pulse Oximetry 96 09/07/17 03:29 09/07/17 03:45 09/07/17 03:48 Temperature 98.1 F Pulse Rate 78 88 Respiratory Rate 18 18 Blood Pressure 116/65 Pulse Oximetry 92 L 09/07/17 05:45 Temperature Pulse Rate Respiratory Rate 17 Blood Pressure Pulse Oximetry Intake & Output 09/06/17 09/07/17 09/07/17 18:59 06:59 18:59 Intake Total 560 / 560 Output Total 600 / 600 Balance -600 / -600 560 / 560 Weight 55.1 kg Intake: IV 200 / 200 Cipro 400 MG/200 ML Inj 400 mg 200 / 200 In 200 ml @ 200 mls/hr IV.SIG Q12H MARILU Rx#:[id number] Oral 360 / 360 Output: Urine 600 / 600 Other: # Voids 2 Date of Last Bowel Movement 09/04/17 09/05/17 # Bowel Movements 0 Weight On Admission 55.1 kg - Constitutional no acute distress - Routine HEENT Exam Head: Present: normocephalic, atraumatic - Routine Neurological Exam Present: alert, oriented X3, CN II-XII intact, motor deficit Oriented 3 fluent articulate pleasant ambulating with a walker right lower extremity weakness 2-3 out of 5 Objective Laboratory Results - last 24 hr 09/06/17 09/06/17 09/06/17 07:01 08:33 11:21 WBC RBC Hgb Hct MCV MCH MCHC RDW Plt Count MPV Neut % (Auto) Lymph % (Auto) [place] % (Auto) Eos % (Auto) Baso % (Auto) Neut # (Auto) Lymph # (Auto) [place] # (Auto) Eos # (Auto) Baso # (Auto) WBC Differential Differential Comment Sodium Potassium Chloride Carbon Dioxide Anion Gap BUN Creatinine Estimated GFR POC Glucose 153 H 134 H Random Glucose Hemoglobin A1c 7.1 H Calcium Phosphorus Magnesium Total Bilirubin AST ALT Alkaline Phosphatase Total Protein Albumin 09/06/17 09/06/17 09/07/17 16:56 20:56 05:02 WBC 10.1 RBC 5.14 Hgb 16.4 H Hct 48.9 H MCV 95.1 MCH 32.0 MCHC 33.6 RDW 14.0 Plt Count 119 L MPV 10.7 Neut % (Auto) 81.7 H Lymph % (Auto) 8.6 L [place] % (Auto) 9.0 H Eos % (Auto) 0.2 Baso % (Auto) 0.5 Neut # (Auto) 8.3 H Lymph # (Auto) 0.9 L [place] # (Auto) 0.9 Eos # (Auto) 0.0 Baso # (Auto) 0.1 WBC Differential . Differential Comment Auto diff final Sodium Potassium Chloride Carbon Dioxide Anion Gap BUN Creatinine Estimated GFR POC Glucose 113 H 171 H Random Glucose Hemoglobin A1c Calcium Phosphorus Magnesium Total Bilirubin AST ALT Alkaline Phosphatase Total Protein Albumin 09/07/17 05:02 WBC RBC Hgb Hct MCV MCH MCHC RDW Plt Count MPV Neut % (Auto) Lymph % (Auto) [place] % (Auto) Eos % (Auto) Baso % (Auto) Neut # (Auto) Lymph # (Auto) [place] # (Auto) Eos # (Auto) Baso # (Auto) WBC Differential Differential Comment Sodium 136 Potassium 4.1 Chloride 101 Carbon Dioxide 24.6 Anion Gap 10 BUN 17 Creatinine 0.94 Estimated GFR 59 L POC Glucose Random Glucose 161 H Hemoglobin A1c Calcium 9.1 Phosphorus 3.6 Magnesium 2.2 Total Bilirubin 0.6 AST 43 H ALT 45 Alkaline Phosphatase 67 Total Protein 7.0 Albumin 3.0 L Review/Management - Diagnosis (1) Stroke Code(s): I63.9 - Cerebral infarction, unspecified Status: Acute Current Visit: Yes (2) Stroke due to embolism of left middle cerebral artery Code(s): I63.412 - Cerebral infarction due to embolism of left middle cerebral artery Status: Acute Current Visit: Yes - Review/Management Plan: suspect stroke and not MS kirsten- small pfo with rt to left shunt recs consider pfo closure if she fails antiplatelet, risk factor reduction/as per cardio recs. Patient will like this further assessed outpatient Seen by hematology hypercoagulable workup underway soft follow-up outpatient on the results antiplatelet tob cessation bp control ldl<70 rehab vs home p.t.- per p.t. f/u in 2-3 weeks repeat mri brain in 6-8 weeks (1) Stroke Qualifiers: CVA mechanism: embolism Precerebral and cerebral artery: middle cerebral artery Laterality of affected vessel: left Qualified Code(s): I63.412 - Cerebral infarction due to embolism of left middle cerebral artery
--- NOTE | 2017-09-07 09:29 | P.DCO ---
- Physical Therapy Order: Evaluate and treat - Home Health Nursing Order: Medical education - Certification I have seen patient Waleska Baltazar on 09/07/17. My clinical findings support the need for the requested home health care services because: High risk of falls I certify that my clinical findings support that this patient is homebound because: Unsteady gait/balance
[2017-09-07] MEDS ORDERED: Lisinopril 5 MG Tablet PO SCH (10:00)
--- NOTE | 2017-09-07 10:07 | P.DS ---
Date of admission: 09/01/17 15:47 Primary care physician: Wiliam Benitez DO Anticipated date of discharge: 09/07/17 Brief History from admission: 67-year-old white female admitted for complaints of right leg hemiparesis DS: Diagnosis - Discharge Diagnosis (1) Stroke due to embolism of left middle cerebral artery Status: Acute Diagnosis: Principal (2) HTN (hypertension) Status: Chronic Diagnosis: Secondary (3) Urinary tract infection due to Klebsiella species Status: Resolved Diagnosis: Secondary DS: Medications - Discharge Medications Prescriptions: aspirin 325 mg PO DAILY #30 tab DS: Summary Hospital Course: These are the medical issues addressed during this hospitalization: 66-year-old white female being admitted for strokelike symptoms and right leg paresis Right leg paresis due to acute left MCA stroke Onset following to 3 hour car rides to [place] and 2 hours spent in hot tub [facility] She has had similar episodes in the past affecting the same leg but not this severe Doses of Solu-Medrol given during hospitalization has resulted in return of paresthesias rather than numbness in her right foot, ankle is moving again with 2 out of 5 strength in upper leg is able to support ambulation with walker MRI of C-spine ordered given history of disc herniations and neck and reviewed during hospitalization Ongoing workup for MS also performed during hospitalization Appreciate neurology consultation Left MCA ischemia, stroke Head MRA reviewed and reveals unremarkable MRA examination of the brain. Specifically, no significant intracranial arterial stenosis or large vessel occlusion. Head MRI reveals white matter lesions consistent with left-sided CVA versus demyelination disorder Neurology, Dr. Narayanan has consulted cardiology and requested JAYSON, with results reviewed patent foramen ovale with preserved left ventricular systolic function. Patient had trace mitral regurgitation and mild tricuspid regurgitation. Continue aspirin daily, continue home Lipitor Patient to consider PFO closure if she fails antiplatelet with risk factor reduction per cardiology. Patient at this time would like to follow-up as an outpatient. Appreciate cardiology, Dr. Cole consult; patient to follow-up as an outpatient for loop recorder and further evaluation with the patent foramen ovale Tobacco secession Abnormal lumbar MRI Lumbar MRI reveals right-sided facet joint synovial cyst at the L4-5 level protruding into the canal in contributing to moderate canal compromise Neurosurgery suspects left CVA, less likely compression of spinal stenosis Appreciate neurosurgery consult during hospitalization CLL urinary tract infection UA ordered due to intermittent elevation of leukocytes, positive for UTI Urine culture with Klebsiella and completed course of Cipro and Bactrim during hospitalization DVT prophylaxis Heparin - Time Spent with Patient Total time spent providing and/or coordinating discharge services: Less than 30 minutes Exam Vital signs: Vital Signs 09/06/17 12:00 09/06/17 16:00 09/06/17 20:00 Temperature 99.1 F 98.5 F 102.6 F H Pulse Rate 16 L 88 90 Respiratory Rate 16 16 19 Blood Pressure 152/70 H 152/99 H 146/77 H Pulse Oximetry 92 L 99 98 09/06/17 21:57 09/06/17 23:34 09/07/17 00:01 Temperature 100.6 F H 100.6 F H Pulse Rate 84 83 Respiratory Rate 18 Blood Pressure 123/56 L Pulse Oximetry 96 09/07/17 03:29 09/07/17 03:45 09/07/17 03:48 Temperature 98.1 F Pulse Rate 78 88 Respiratory Rate 18 18 Blood Pressure 116/65 Pulse Oximetry 92 L 09/07/17 05:45 Temperature Pulse Rate Respiratory Rate 17 Blood Pressure Pulse Oximetry Intake & Output 09/06/17 09/07/17 09/07/17 18:59 06:59 18:59 Intake Total 560 / 560 Output Total 600 / 600 Balance -600 / -600 560 / 560 Weight 55.1 kg Intake: IV 200 / 200 Cipro 400 MG/200 ML Inj 400 mg 200 / 200 In 200 ml @ 200 mls/hr IV.SIG Q12H MARILU Rx#:[id number] Oral 360 / 360 Output: Urine 600 / 600 Other: # Voids 2 Date of Last Bowel Movement 09/04/17 09/05/17 # Bowel Movements 0 Weight On Admission 55.1 kg Narrative: GENERAL: This is a well-nourished, well-developed patient, in no apparent distress. CARDIOVASCULAR: Regular rate and rhythm RESPIRATORY: Clear to auscultation. Breath sounds equal bilaterally. No wheezes , rales, or rhonchi. GASTROINTESTINAL: Abdomen soft, non-tender, nondistended. Normal active bowel sounds MUSCULOSKELETAL: Extremities without clubbing, cyanosis, or edema. NEURO: Alert & Oriented x4 to person, place, time, situation. Right lower extremity strength 4.5 out of 5 sensation intact Results Procedures completed during hospitalization: 09/06 JAYSON Completed studies during hospitalization: I Labs on day of discharge: Labs from last 24 hours 09/07/17 09/07/17 09/06/17 05:02 05:02 20:56 WBC 10.1 RBC 5.14 Hgb 16.4 H Hct 48.9 H MCV 95.1 MCH 32.0 MCHC 33.6 RDW 14.0 Plt Count 119 L MPV 10.7 Neut % (Auto) 81.7 H Lymph % (Auto) 8.6 L Cobb % (Auto) 9.0 H Eos % (Auto) 0.2 Baso % (Auto) 0.5 Neut # (Auto) 8.3 H Lymph # (Auto) 0.9 L Cobb # (Auto) 0.9 Eos # (Auto) 0.0 Baso # (Auto) 0.1 WBC Differential . Differential Comment Auto diff final Sodium 136 Potassium 4.1 Chloride 101 Carbon Dioxide 24.6 Anion Gap 10 BUN 17 Creatinine 0.94 Estimated GFR 59 L POC Glucose 171 H Random Glucose 161 H Hemoglobin A1c Calcium 9.1 Phosphorus 3.6 Magnesium 2.2 Total Bilirubin 0.6 AST 43 H ALT 45 Alkaline Phosphatase 67 Total Protein 7.0 Albumin 3.0 L 09/06/17 09/06/17 09/06/17 16:56 11:21 07:01 WBC RBC Hgb Hct MCV MCH MCHC RDW Plt Count MPV Neut % (Auto) Lymph % (Auto) Cobb % (Auto) Eos % (Auto) Baso % (Auto) Neut # (Auto) Lymph # (Auto) Cobb # (Auto) Eos # (Auto) Baso # (Auto) WBC Differential Differential Comment Sodium Potassium Chloride Carbon Dioxide Anion Gap BUN Creatinine Estimated GFR POC Glucose 113 H 134 H Random Glucose Hemoglobin A1c 7.1 H Calcium Phosphorus Magnesium Total Bilirubin AST ALT Alkaline Phosphatase Total Protein Albumin - Impressions ITS Impressions Cervical Spine MRI 09/05/17 00:00 CONCLUSION: 1. There is broad-based bulging and right paracentral bulging at C4-5. 2. There is diffuse broad-based bulging at C5-6 and C6-7 3. Primary bony degenerative changes, disc degeneration and disc space narrowing at C4-5, C5-6 and C6-7 Discharge Plan - Discharge Disposition Patient Disposition: /Home Health Service - Discharge Condition Condition: Good - Discharge Order Discharge Orders: Discharge Order (Routine); Ordered 09/07/17 Ordered By: Ashley Johnson - Discharge Details Anticipated Discharge Date: 09/07/17 - Physicians Team Primary Care Provider: Wiliam Benitez Attending Provider: Ashley Johnson Other Providers: Jose Elias Narayanan MD ; Anthony Huang MD ; Polina Cole MD ; Lynn Burgos N - Rxs /Orders / Referrals /Forms Prescriptions: New aspirin 325 mg Tablet 325 mg PO DAILY Qty: 30 RF: 0 Continue alprazolam 0.25 mg Tablet 0.25 mg PO Q8HR PRN (Reason: Anxiety) atenolol 50 mg Tablet 50 mg PO BID atorvastatin 40 mg Tablet 40 mg PO HS dapagliflozin 5 mg Tablet 5 mg PO DAILY dulaglutide 0.75 mg/0.5 mL Pen Injector 0.75 mg SUB-Q QWEEK escitalopram oxalate 5 mg Tablet 5 mg PO DAILY estropipate 0.75 mg Tablet 0.75 mg PO DAILY lisinopril 5 mg Tablet 5 mg PO DAILY losartan 50 mg Tablet 50 mg PO DAILY meloxicam 7.5 mg Tablet 7.5 mg PO DAILY metformin 500 mg Tablet Extended Release 24hr 500 mg PO DAILY Referrals: Wiliam Benitez, [Primary Care Provider] - See Instructions ( Please call the physician's office to book the appointment to be seen within [ 1 week ].) Jose Elias Narayanan MD [Physician] - See Instructions ( Please call the physician's office to book the appointment to be seen within [2-4 weeks].) Polina Cole MD [Physician] - See Instructions ( Please call the physician 's office to book the appointment to be seen within [2-4 weeks].) - Discharge Instructions Additional Instructions: Prescriptions given at time of discharge Take medications as prescribed Follow up with MD as instructed - Post Discharge Care Plan Care Plan Goals: Discharge Care Plan Goals for Stroke You have been diagnosed with or have a high risk for a stroke, or a TIA ( transient ischemic attack). During a stroke, blood stops flowing to part of your brain. This can damage areas in the brain that control other parts of the body. Symptoms after a stroke depend on which part of the brain has been affected. Directions to Meet your Goals: 1. Diet: Based on your situation, your doctor will direct you to make changes in your diet. Some of the changes may include: * Reducing the amount of fat and cholesterol you eat * Don't add salt to your food. * Eat more fresh vegetables and fruits * Eat more lean proteins, such as fish, poultry, and beans and peas (legumes). Cut down on red meat & processed meats * Use low-fat dairy products * Limit vegetable oils and nut oils. Avoid any food that has hydrogenated listed in its ingredients. * Limit sweets and processed foods such as chips, cookies, and baked goods 2. Prevent Falls/Injury: You may be at risk of falling. Activity: * Keep your surrounding clutter free to help you walk more easily. * Your doctor and therapist may decide if you need an assistive device to walk safely. Shower/Bathing: * Test the water temperature with a hand or foot that was not affected by the stroke. * Use grab bars, a shower seat, a hand-held showerhead, and a long-handled brush. Getting Dressed: * Dress while sitting, starting with the affected side or limb. * Wear shirts that pull easily over your head. Wear pants or skirts with elastic waistbands. * Use zippers with loops attached to the pull tabs. 3. Lifestyle Modifications: * Take your medicines exactly as prescribed. Dont skip doses. * Begin an exercise program as directed by your doctor. You can benefit from simple activities such as walking or gardening. * Limit how much alcohol you drink. Men should have no more than 2 alcoholic drinks a day. Women should limit themselves to 1 alcoholic drink per day. * Know your cholesterol level. Follow your doctor's recommendations about how to keep cholesterol under control. * If you are a smoker, quit now. Joining a stop-smoking program will improve your chances of success. Ask your doctor for medicines or other methods to help you quit. * Learn stress management techniques to help you deal with stress in your home and work life. 4. Stroke Risk Factors: Once youve had a stroke, youre at greater risk for another one. Listed below are some other factors that can increase your risk for a stroke: * High blood pressure and High Cholesterol * Cigarette or cigar smoking * Diabetes * Carotid or other artery disease * Atrial fibrillation, atrial flutter, or other heart disease * Not being physically active * Obesity * Certain blood disorders such as sickle cell anemia * Drinking too much alcohol * Abusing street drugs * Race * Gender * Family history of stroke * Diet high in salty, fried, or greasy foods 5. Follow-up: * Keep your medical appointments. Close follow-up is important to stroke rehabilitation and recovery. * Some medicines require blood tests to check for progress or problems. Keep follow-up appointments for any blood tests ordered by your providers. Call 911 right away if you have: Weakness, tingling, or loss of feeling on one side of your face or body Sudden double vision or trouble seeing in one or both eyes Sudden trouble talking or slurred speech Trouble understanding others Sudden, severe headache Dizziness, loss of balance, or a sense of falling Blackouts or seizures F.A.S.T. is an easy way to remember the signs of stroke. When you see these signs, you know that you need to call 911 fast. F.A.S.T. stands for: * F is for face drooping. One side of the face is drooping or numb. When the person smiles, the smile is uneven. * A is for arm weakness. One arm is weak or numb. When the person lifts both arms at the same time, one arm may drift downward. * S is for speech difficulty. You may notice slurred speech or trouble speaking. The person can't repeat a simple sentence correctly when asked. * T is for time to call 911. If someone shows any of these symptoms, even if they go away, call 911 right away. Make note of the time the symptoms first appeared. Your Health Problems: Goals to Promote Your Health: * To prevent worsening of your condition * To maintain your health at the optimal level Directions to Meet Your Goals: * Take your medications as prescribed * Follow your dietary instruction * Follow activity as directed * Keep your appointments as scheduled * Take your immunizations and boosters as scheduled * If your symptoms worsen call your PCP * If no PCP go to Urgent Care or Emergency Room Smoking is dangerous to your health. Avoid second hand smoke. You may reach the 24-hour crisis hotline for domestic abuse at .* * Discharge Care Plan Goals for Stroke You have been diagnosed with or have a high risk for a stroke, or a TIA ( transient ischemic attack). During a stroke, blood stops flowing to part of your brain. This can damage areas in the brain that control other parts of the body. Symptoms after a stroke depend on which part of the brain has been affected. Directions to Meet your Goals: 1. Diet: Based on your situation, your doctor will direct you to make changes in your diet. Some of the changes may include: * Reducing the amount of fat and cholesterol you eat * Don't add salt to your food. * Eat more fresh vegetables and fruits * Eat more lean proteins, such as fish, poultry, and beans and peas (legumes). Cut down on red meat & processed meats * Use low-fat dairy products * Limit vegetable oils and nut oils. Avoid any food that has hydrogenated listed in its ingredients. * Limit sweets and processed foods such as chips, cookies, and baked goods 2. Prevent Falls/Injury: You may be at risk of falling. Activity: * Keep your surrounding clutter free to help you walk more easily. * Your doctor and therapist may decide if you need an assistive device to walk safely. Shower/Bathing: * Test the water temperature with a hand or foot that was not affected by the stroke. * Use grab bars, a shower seat, a hand-held showerhead, and a long-handled brush. Getting Dressed: * Dress while sitting, starting with the affected side or limb. * Wear shirts that pull easily over your head. Wear pants or skirts with elastic waistbands. * Use zippers with loops attached to the pull tabs. 3. Lifestyle Modifications: * Take your medicines exactly as prescribed. Dont skip doses. * Begin an exercise program as directed by your doctor. You can benefit from simple activities such as walking or gardening. * Limit how much alcohol you drink. Men should have no more than 2 alcoholic drinks a day. Women should limit themselves to 1 alcoholic drink per day. * Know your cholesterol level. Follow your doctor's recommendations about how to keep cholesterol under control. * If you are a smoker, quit now. Joining a stop-smoking program will improve your chances of success. Ask your doctor for medicines or other methods to help you quit. * Learn stress management techniques to help you deal with stress in your home and work life. 4. Stroke Risk Factors: Once youve had a stroke, youre at greater risk for another one. Listed below are some other factors that can increase your risk for a stroke: * High blood pressure and High Cholesterol * Cigarette or cigar smoking * Diabetes * Carotid or other artery disease * Atrial fibrillation, atrial flutter, or other heart disease * Not being physically active * Obesity * Certain blood disorders such as sickle cell anemia * Drinking too much alcohol * Abusing street drugs * Race * Gender * Family history of stroke * Diet high in salty, fried, or greasy foods 5. Follow-up: * Keep your medical appointments. Close follow-up is important to stroke rehabilitation and recovery. * Some medicines require blood tests to check for progress or problems. Keep follow-up appointments for any blood tests ordered by your providers. Call 911 right away if you have: Weakness, tingling, or loss of feeling on one side of your face or body Sudden double vision or trouble seeing in one or both eyes Sudden trouble talking or slurred speech Trouble understanding others Sudden, severe headache Dizziness, loss of balance, or a sense of falling Blackouts or seizures F.A.S.T. is an easy way to remember the signs of stroke. When you see these signs, you know that you need to call 911 fast. F.A.S.T. stands for: * F is for face drooping. One side of the face is drooping or numb. When the person smiles, the smile is uneven. * A is for arm weakness. One arm is weak or numb. When the person lifts both arms at the same time, one arm may drift downward. * S is for speech difficulty. You may notice slurred speech or trouble speaking. The person can't repeat a simple sentence correctly when asked. * T is for time to call 911. If someone shows any of these symptoms, even if they go away, call 911 right away. Make note of the time the symptoms first appeared.
[2017-09-07] MEDS: Atenolol 50 MG Tablet PO SCH (10:09)
[2017-09-07] MEDS: Aspirin 325 MG Tablet PO SCH (10:09)
[2017-09-07] MEDS: Loratadine 10 MG Tablet PO SCH (10:10)
[2017-09-07 11:13] VITALS: RESP 16
[2017-09-07] MEDS: Insulin NovoLOG Aspart Correctional Sugar Inj SQ SCH ×2 (12:18→13:22)
--- NOTE | 2017-09-07 12:58 | P.PNCA ---
Subjective Interval history: No CP or SOB, R foot weakness and paresthesias Physical Exam Vital signs: Vital Signs 09/06/17 16:00 09/06/17 20:00 09/06/17 21:57 Temperature 98.5 F 102.6 F H 100.6 F H Pulse Rate 88 90 Respiratory Rate 16 19 Blood Pressure 152/99 H 146/77 H Pulse Oximetry 99 98 09/06/17 23:34 09/07/17 00:01 09/07/17 03:29 Temperature 100.6 F H 98.1 F Pulse Rate 84 83 78 Respiratory Rate 18 18 Blood Pressure 123/56 L 116/65 Pulse Oximetry 96 92 L 09/07/17 03:45 09/07/17 03:48 09/07/17 05:45 Temperature Pulse Rate 88 Respiratory Rate 18 17 Blood Pressure Pulse Oximetry 09/07/17 08:00 Temperature 98.6 F Pulse Rate 80 Respiratory Rate 16 Blood Pressure 145/74 H Pulse Oximetry Intake & Output 09/06/17 09/07/17 09/07/17 18:59 06:59 18:59 Intake Total 560 / 560 Output Total 600 / 600 Balance -600 / -600 560 / 560 Weight 121 lb 7.595 oz Intake: IV 200 / 200 Cipro 400 MG/200 ML Inj 400 mg 200 / 200 In 200 ml @ 200 mls/hr IV.SIG Q12H MARILU Rx#:[id number] Oral 360 / 360 Output: Urine 600 / 600 Other: # Voids 2 Date of Last Bowel Movement 09/04/17 09/05/17 09/05/17 # Bowel Movements 0 Weight On Admission 121 lb 7.595 oz - Constitutional no acute distress - Routine Respiratory Exam Present: CTA bilaterally - Routine Cardiovascular Exam Present: RRR - Routine Abdominal Exam Present: soft - Routine Extremities Exam Present: edema - Routine Neurological Exam Present: alert, oriented X3, motor deficit R foot weakness - Routine Psychiatric Exam Present: normal affect Assessment and Plan - Assessment (1) Stroke Code(s): I63.9 - Cerebral infarction, unspecified Status: Acute (2) HTN (hypertension) Code(s): I10 - Essential (primary) hypertension Status: Chronic (3) Smoking Code(s): F17.200 - Nicotine dependence, unspecified, uncomplicated Status: Chronic - Plan Tele reviewed; there is no evidence of a fib. JAYSON showed a PFO with a small R to L shunt. Continue ASA and atorvastatin. Strongly encouraged to quit smoking. DC home as planned. (1) Stroke Qualifiers: CVA mechanism: embolism Precerebral and cerebral artery: middle cerebral artery Laterality of affected vessel: left Qualified Code(s): I63.412 - Cerebral infarction due to embolism of left middle cerebral artery
[2017-09-07 15:10] VITALS: BP 106/61; PULSE 82; TEMP 98.4; O2SAT 96
== END 2017-09-07 16:43 | disposition home health service (06) ==
LOC: N06 15:47
PROVIDERS: ADMIT Family Medicine; ATTEND Family Medicine